=== PATIENT | male | born 1950 | race Two or more races ===

== ENCOUNTER 2024-11-27 12:02 | Emergency (ER) | payer OTHER, SELFPAY ==
[2024-11-27 12:02] VITALS: BMI 30.5
[2024-11-27 12:56] VITALS: BP 95/60; PULSE 78; RESP 19; TEMP 36.7; O2SAT 99
--- NOTE | 2024-11-27 13:08 | PD.EDEYE ---
ED Eye Problem RME/HPI General Chief complaint: Eye Problems Stated complaint: R EYE REDNESS TODAY Time Seen by Provider: 11/27/24 12:46 Source: patient Arrival date/time: 11/27/24 12:02 74-year-old male history of hypertension presents to the emergency department with complaints of right eye redness (states bloodshot). Reports this morning he woke up and noticed his eye was bloody. He had some mild itchiness during night and discovered the redness this morning. Patient has no other concerns or symptoms. No headache no diplopia double vision no dizziness. No eye discharge no eye pain. Mode of arrival: ambulatory Related Data Home Medications ?Medication ?Instructions ?Recorded ?Confirmed alfuzosin 10 mg tablet,extended 10 mg PO QDAY 08/04/24 08/04/24 release 24 hr apixaban 5 mg tablet 5 mg PO BID 08/04/24 08/04/24 atorvastatin 40 mg tablet 40 mg PO QPM 08/04/24 08/04/24 cetirizine 10 mg tablet 10 mg PO QDAY 08/04/24 08/04/24 cyanocobalamin (vitamin B-12) 1,000 mcg PO QDAY 08/04/24 08/04/24 1,000 mcg tablet dextran 70-hypromellose 0.1 %-0.3 1 drp ophthalmic (eye) BID PRN 08/04/24 08/04/24 % eye drops unknown escitalopram oxalate 10 mg tablet 10 mg PO QDAY 08/04/24 08/04/24 insulin glargine 100 unit/mL (3 20 unit subcut QAM 08/04/24 08/04/24 mL) subcutaneous pen levothyroxine 50 mcg tablet 50 mcg PO QDAY 08/04/24 08/04/24 (Synthroid) losartan 100 mg tablet 100 mg PO QDAY 08/04/24 08/04/24 metoprolol tartrate 100 mg tablet 100 mg PO Q12H 08/04/24 08/04/24 miconazole nitrate 2 % topical 1 applic topical BID 08/04/24 08/04/24 cream sildenafil 100 mg tablet 50 mg PO QDAY PRN Erectile 08/04/24 08/04/24 Dysfunction spironolactone 25 mg tablet 25 mg PO DAILY 08/04/24 08/04/24 Previous Rx's ?Medication ?Instructions ?Recorded diphenhydramine HCl 25 mg capsule 25 mg PO Q8H PRN allergic symptoms 01/08/24 (Benadryl) #30 caps hydrocodone 5 mg-acetaminophen 325 1 tab PO BID PRN pain #10 tabs 07/15/24 mg tablet hydrocodone 5 mg-acetaminophen 325 1 tab PO BID PRN pain #10 tabs 07/15/24 mg tablet hydralazine 10 mg tablet 10 mg PO TID PRN hypertension #30 08/04/24 tabs Allergies Allergy/AdvReac Type Severity Reaction Status Date / Time lisinopril AdvReac Verified 08/15/24 18:49 paroxetine AdvReac Verified 08/15/24 18:49 Review of Systems Review of Systems Systems Reviewed: All systems reviewed, normal except as documented Narrative Review of Systems: Gen: No fever, no chills, no weight loss EYES: No discharge, no visual changes, no pain, normal eyelids, + redness sclera. HEENT: No ear pain, no congestion, no sore throat PULM: No shortness of breath, no cough, no congestion CV: No chest pain, no dyspnea on exertion, no palpitations GI: No nausea, no vomiting, no diarrhea, no pain, no constipation : No frequency, no urgency,? no dysuria Musc/skel: No joint pain, no back pain Skin: No rash? Psyc: No hallucinations, no depression Heme/Lymph: No easy bleeding or bruising tendencies Neuro: No weakness, no headache ED Exam Narrative Physical exam: General: Sittiing in Exam table in no acute distress, answering questions appropriately HENT: normocephalic, atraumatic, EOMI, PERRLA, moist mucous membranes Chest: chest wall is nontender Cardiac: regular rate and rhythm, normal S1 and S2, no murmurs, rubs, or gallops, capillary refill ?2 seconds Pulmonary: clear to auscultation bilaterally, no wheezing, crackles, or rhonchi Abdominal: active bowel sounds, soft, nontender, nondistended Neuro: A&OX3, CN II-XII intact, sensation grossly intact bilaterally in UE and LE. Skin: no rashes, no ecchymosis Ext: no lower extremity edema Course Quality Measures none Vital Signs Vital signs: Vital Signs Temperature 98.1 F 11/27/24 12:56 Pulse Rate 78 11/27/24 12:56 Respiratory Rate 19 11/27/24 12:56 Blood Pressure 95/60 11/27/24 12:56 Pulse Oximetry (%) 99 11/27/24 12:56 Oxygen Delivery Method Room Air 11/27/24 12:56 Eye MDM Narrative MDM Narrative:: Presentation consistent with subconjunctival hemmorhage. Given history and exam I have low suspicion for corneal abrasion or ulcer, globe rupture, uveitis, HSV keratitis, Endopthalmitis, Retinal Detachment, Angle Closure Glaucoma, Foreign Body, hyphema. As this is an isolated episode and patient has no other bleeding sequelae they are stable for discharge without further workup. Discharge home with primary care and ophthalmology follow up in 48 hours if worsening or not resolving. Patient data External records reviewed:: [facility] previous records Clinical information provided by:: patient Social determinants that could affect healthcare access:: none Patient has the following chronic illnesses:: none How is presenting disease/condition affected by chronic disease/condition?: no chronic disease Evaluation data The following diagnostics were reviewed and interpreted by me:: other (specify) Lab and/or radiology exams considered but not ordered:: none Interpretation Summary: none Medications / Prescriptions Medications or Prescriptions considered but not ordered:: none Medication administrations:: none Consultations Consultation(s) initiated? (list below): No Diagnosis Eye Problem Differential Diagnosis: subconjunctival hemorrhage Most likely diagnosis given after review of the tests above:: Subconjunctival hemorrhage Admission Indicated Admission indicated?: not indicated Explain why admission is indicated or not indicated:: none Admission Request Was there a request for admission?: No Disposition Plan Disposition Plan: Discharge Discharge Attestation Discharge Attestation: The patient and all family members were given an opportunity to ask questions and understood the discharge instructions. Discharge instructions specifically effects, indications for sooner follow up or return to the emergency department, and the expected course of current diagnosis. Patient condition: Stable Discharge Plan Plan Patient Disposition: HOME (Self Care) Patient condition on transfer: Stable Prescriptions/Referrals Prescriptions/Med Rec: No Action diphenhydramine HCl [Benadryl] 25 mg capsule 25 mg PO Q8H PRN (Reason: allergic symptoms) Qty: 30 0RF hydrocodone-acetaminophen 5-325 mg tablet 1 tab PO BID MDD 10mg PRN (Reason: pain) Qty: 10 0RF hydrocodone-acetaminophen 5-325 mg tablet 1 tab PO BID MDD 10mg PRN (Reason: pain) Qty: 10 0RF atorvastatin 40 mg Tablet 40 mg PO QPM cetirizine 10 mg Tablet 10 mg PO QDAY levothyroxine [Synthroid] 50 mcg Tablet 50 mcg PO QDAY losartan 100 mg Tablet 100 mg PO QDAY escitalopram oxalate 10 mg Tablet 10 mg PO QDAY alfuzosin 10 mg Tablet Extended Release 24 Hr 10 mg PO QDAY Rx Instructions: administer after the same meal each day miconazole nitrate 2 % Cream 1 applic TOPICAL BID metoprolol tartrate 100 mg Tablet 100 mg PO Q12H sildenafil 100 mg Tablet 50 mg PO QDAY PRN (Reason: Erectile Dysfunction) Rx Instructions: administer 30 minutes to 4 hours before activity spironolactone 25 mg Tablet 25 mg PO DAILY cyanocobalamin (vitamin B-12) 1,000 mcg Tablet 1,000 mcg PO QDAY insulin glargine 100 unit/mL (3 mL) Insulin Pen 20 unit SUBCUT QAM dextran 70-hypromellose 0.1-0.3 % Drops 1 drp OPHTHALMIC (EYE) BID PRN (Reason: unknown) apixaban 5 mg Tablet 5 mg PO BID hydralazine 10 mg tablet 10 mg PO TID PRN (Reason: hypertension) Qty: 30 0RF Rx Instructions: Please take as needed for systolic blood pressure > 180 Problem List Clinical Impression: Subconjunctival hemorrhage Patient/Caregiver Discharge Instructions Discharge Activity: activity as tolerated Education Materials: ED Subconjunctival Hemorrhage Additional Instructions: A subconjunctival hemorrhage is when a tiny blood vessel breaks just under the clear surface of your eye, causing a small amount of blood to spread out. This results in a bright red patch on the white part of your eye. It might look concerning, but it's usually harmless and doesn't affect your vision. It can happen from things like coughing, sneezing, or rubbing your eyes too hard. Most of the time, the blood will clear up on its own within one to two weeks without any treatment. If you notice pain, changes in vision, or if it keeps happening, it's a good idea to see a doctor. But in most cases, there's no need to worry! There is any changes in your condition please return to the emergency department soon as possible or follow-up with your primary doctor Print Language: French Stand Alone Forms: Edna Award Info., Patient Portal Info Letter PA/SUPERVISOR WHITE [employer] Supervising Physician PA/SUPERVISOR [employer]ITE [employer]AR Supervising Physician: Dr Angel
== END 2024-11-27 14:01 | disposition home or self-care (01) ==
PROVIDERS: Emergency Provider Emergency Medicine
DX: H11.31 Conjunctival hemorrhage, right eye (principal)
CPT/HCPCS: 99281

== ENCOUNTER 2025-09-03 15:52 | Emergency (ER) | payer OTHER, SELFPAY ==
[2025-09-03 15:53] VITALS: BMI 30.5
[2025-09-03 16:42] VITALS: BP 142/61; PULSE 67; RESP 18; TEMP 36.9; O2SAT 95
--- NOTE | 2025-09-03 16:48 | PD.EDRECHK ---
ED Recheck Abnl Lab Rx-RME/HPI General Chief Complaint: Recheck/Abnormal Lab/Rx Stated Complaint: RECHECK FOR COVID Time Seen by Provider: 09/03/25 16:00 Source: patient Arrival date/time: 09/03/25 15:52 75-year-old male with a history of hyperlipidemia, hypertension, type 2 diabetes presents to the emergency room with a chief complaint of wanting a COVID test as he has elderly people living with him at home. Mode of arrival: ambulatory Limitations: no limitations Related Data Home Medications ?Medication ?Instructions ?Recorded ?Confirmed alfuzosin 10 mg tablet,extended 10 mg PO QDAY 08/04/24 08/04/24 release 24 hr apixaban 5 mg tablet 5 mg PO BID 08/04/24 08/04/24 atorvastatin 40 mg tablet 40 mg PO QPM 08/04/24 08/04/24 cetirizine 10 mg tablet 10 mg PO QDAY 08/04/24 08/04/24 cyanocobalamin (vitamin B-12) 1,000 mcg PO QDAY 08/04/24 08/04/24 1,000 mcg tablet dextran 70-hypromellose 0.1 %-0.3 1 drp ophthalmic (eye) BID PRN 08/04/24 08/04/24 % eye drops unknown escitalopram oxalate 10 mg tablet 10 mg PO QDAY 08/04/24 08/04/24 insulin glargine 100 unit/mL (3 20 unit subcut QAM 08/04/24 08/04/24 mL) subcutaneous pen levothyroxine 50 mcg tablet 50 mcg PO QDAY 08/04/24 08/04/24 (Synthroid) losartan 100 mg tablet 100 mg PO QDAY 08/04/24 08/04/24 metoprolol tartrate 100 mg tablet 100 mg PO Q12H 08/04/24 08/04/24 miconazole nitrate 2 % topical 1 applic topical BID 08/04/24 08/04/24 cream sildenafil 100 mg tablet 50 mg PO QDAY PRN Erectile 08/04/24 08/04/24 Dysfunction spironolactone 25 mg tablet 25 mg PO DAILY 08/04/24 08/04/24 Previous Rx's ?Medication ?Instructions ?Recorded diphenhydramine HCl 25 mg capsule 25 mg PO Q8H PRN allergic symptoms 01/08/24 (Benadryl) #30 caps hydrocodone 5 mg-acetaminophen 325 1 tab PO BID PRN pain #10 tabs 14/24 mg tablet hydrocodone 5 mg-acetaminophen 325 1 tab PO BID PRN pain #10 tabs 14/24 mg tablet hydralazine 10 mg tablet 10 mg PO TID PRN hypertension #30 08/04/24 tabs azithromycin 250 mg tablet See Rx Instructions PO .COMPLEX #6 08/28/25 tabs Allergies Allergy/AdvReac Type Severity Reaction Status Date / Time lisinopril AdvReac Verified 09/03/25 15:53 paroxetine AdvReac Verified 09/03/25 15:53 ED Exam General Limitations: Present no limitations Course Quality Measures none Orders Category Date Time Status Bedside COVID-19 Antigen Test NOW Care 09/03/25 16:43 Active Vital Signs Vital signs: Vital Signs Temperature 98.5 F 09/03/25 16:42 Pulse Rate 67 09/03/25 16:42 Respiratory Rate 18 09/03/25 16:42 Blood Pressure 142/61 H 09/03/25 16:42 Pulse Oximetry (%) 95 09/03/25 16:42 Oxygen Delivery Method Room Air 09/03/25 16:42 Recheck / Abnormal Lab / Rx MDM Narrative MDM Narrative:: 75-year-old male with a history of hyperlipidemia, hypertension, type 2 diabetes presents to the emergency room with a chief complaint of wanting a COVID test as he has elderly people living with him at home. Patient is hemodynamically stable and in no apparent distress. Patient is afebrile not tachycardic not tachypneic. Patient states he is feeling a lot better and denies any other signs and symptoms. Patient states he is just here for a COVID test as he has elderly people living in his home Patient was discharged and educated to follow-up with primary care provider in the next 24 to 48 hours and return to the emergency room for any evidence of worsening signs or symptoms Patient data External records reviewed:: [facility] previous records Clinical information provided by:: patient Social determinants that could affect healthcare access:: none Patient has the following chronic illnesses:: No chronic illness How is presenting disease/condition affected by chronic disease/condition?: no chronic disease Evaluation data The following diagnostics were reviewed and interpreted by me:: lab results and radiology exam(s) Lab and/or radiology exams considered but not ordered:: Labs and radiology exams considered and ordered Interpretation Summary: N/A Medications / Prescriptions Medications or Prescriptions considered but not ordered:: No medication given Medication administrations:: No medication given Consultations Consultation(s) initiated? (list below): No Diagnosis Recheck Differential Diagnosis: other (COVID-19 ruled out by laboratory testing) Most likely diagnosis given after review of the tests above:: COVID-19 ruled out by laboratory testing Admission Indicated Admission indicated?: not indicated Admission Request Was there a request for admission?: No Disposition Plan Disposition Plan: Discharge Discharge Attestation Discharge Attestation: The patient and all family members were given an opportunity to ask questions and understood the discharge instructions. Discharge instructions specifically effects, indications for sooner follow up or return to the emergency department, and the expected course of current diagnosis. Patient condition: Stable Discharge Plan Plan Patient Disposition: HOME (Self Care) Discharge Disposition comment: Stable Prescriptions/Referrals Prescriptions/Med Rec: No Action diphenhydramine HCl [Benadryl] 25 mg capsule 25 mg PO Q8H PRN (Reason: allergic symptoms) Qty: 30 0RF hydrocodone-acetaminophen 5-325 mg tablet 1 tab PO BID MDD 10mg PRN (Reason: pain) Qty: 10 0RF hydrocodone-acetaminophen 5-325 mg tablet 1 tab PO BID MDD 10mg PRN (Reason: pain) Qty: 10 0RF atorvastatin 40 mg Tablet 40 mg PO QPM cetirizine 10 mg Tablet 10 mg PO QDAY levothyroxine [Synthroid] 50 mcg Tablet 50 mcg PO QDAY losartan 100 mg Tablet 100 mg PO QDAY escitalopram oxalate 10 mg Tablet 10 mg PO QDAY alfuzosin 10 mg Tablet Extended Release 24 Hr 10 mg PO QDAY Rx Instructions: administer after the same meal each day miconazole nitrate 2 % Cream 1 applic TOPICAL BID metoprolol tartrate 100 mg Tablet 100 mg PO Q12H sildenafil 100 mg Tablet 50 mg PO QDAY PRN (Reason: Erectile Dysfunction) Rx Instructions: administer 30 minutes to 4 hours before activity spironolactone 25 mg Tablet 25 mg PO DAILY cyanocobalamin (vitamin B-12) 1,000 mcg Tablet 1,000 mcg PO QDAY insulin glargine 100 unit/mL (3 mL) Insulin Pen 20 unit SUBCUT QAM dextran 70-hypromellose 0.1-0.3 % Drops 1 drp OPHTHALMIC (EYE) BID PRN (Reason: unknown) apixaban 5 mg Tablet 5 mg PO BID hydralazine 10 mg tablet 10 mg PO TID PRN (Reason: hypertension) Qty: 30 0RF Rx Instructions: Please take as needed for systolic blood pressure > 180 azithromycin 250 mg tablet See Rx Instructions .ROUTE .COMPLEX Qty: 6 0RF Rx Instructions: For 250 mg dose pack: take 500 mg today (day 1), then 250 mg for 4 days (days 2-5) Problem List Clinical Impression: COVID-19 ruled out by laboratory testing Patient/Caregiver Discharge Instructions Additional Instructions: Please follow-up with your primary doctor in the next 24 to 48 hours Your COVID-19 test was negative For any evidence of worsening signs or symptoms return to the emergency room immediately Print Language: Mexican Stand Alone Forms: Edna Award Info., Patient Portal Info Letter PA/AIDEN Supervising Physician PA/AIDEN Supervising Physician: Dr. Padron
== END 2025-09-03 17:15 | disposition home or self-care (01) ==
PROVIDERS: Emergency Provider Family Medicine
DX: Z11.52 Encounter for screening for COVID-19 (principal); E11.9 Type 2 diabetes mellitus without complications; E78.5 Hyperlipidemia, unspecified; I10 Essential (primary) hypertension
CPT/HCPCS: 99283

== ENCOUNTER → 2025-10-19 | Outpatient (CLI) | payer OTHER, SELFPAY ==
--- NOTE | 2025-10-19 15:30 | XR_ITS ---
Examination: MRI lumbar spine without contrast Date and time of exam: October 19, 2025, 1556 hours INDICATIONS: Low back pain for years after falling off a ladder Technique: Multiple MRI axial and sagittal sections lumbar spine. Sagittal T2-weighted images, TR 3500, TE 118 T1 weighted transverse sections, TR 688 T8.5, T2-weighted sagittal sections T1 weighted sagittal sections TR 621, TE 30 T2 axial sections, TR 4, 190, TE 84. Findings: Satisfactory alignment lumbar vertebral bodies No lumbar fracture Advanced disc narrowing L2-L3 with reactive bony endplate change Advanced disc narrowing L5-S1 No spondylolisthesis Disc desiccation upper 4 lumbar levels L5-S1 no disc protrusion L4-L5 3 mm central lumbar disc bulge extending to the foraminal region L3-L4 small foraminal disc bulges but no ganglionic compression L2-L3 small foraminal disc bulges but no ganglionic compression L1-L2 no disc protrusion IMPRESSION: Advanced degenerative disc disease L2-3 and L5-S1 No lumbar fracture L4-L5 3 mm central lumbar disc bulge
== END | disposition home or self-care (01) ==
LOC: SMRI 15:10
DX: M51.370 Other intervertebral disc degeneration, lumbosacral region with discogenic back pain only (principal); M51.360 Other intervertebral disc degeneration, lumbar region with discogenic back pain only
CPT/HCPCS: 72148